=== PATIENT | male | born 1970 | race Caucasian/White ===

== ENCOUNTER 2022-03-17 13:50 | Observation (INO) ==
[2022-03-17] MEDS ORDERED: NS 1,000 ML IV 1,000 ML IV SCH (14:00)
[2022-03-17] MEDS ORDERED: NS 1,000 ML IV 1,000 ML ONE (14:12)
[2022-03-17 14:21] LABS: BASOPHILS # (AUTO) 0.3 X10^3/uL (0.0-0.1); BASOPHILS % (AUTO) 3.2 % (0.2-1.0); EOSINOPHILS # (AUTO) 0.2 x10^3/uL (0.0-0.2); EOSINOPHILS % (AUTO) 2.6 % (0.9-2.9); HEMATOCRIT 44.8 % (42.0-54.0); HEMOGLOBIN 15.5 g/dL (13.5-18.0); LYMPHOCYTES # (AUTO) 1.5 X10^3/uL (1.3-2.9); LYMPHOCYTES % (AUTO) 17.8 % (21.0-51.0); MEAN CORPUSCULAR HEMOGLOBIN 30.2 pg (27.0-34.0); MEAN CORPUSCULAR HGB CONC 34.6 g/dL (33.0-35.0); MEAN CORPUSCULAR VOLUME 87.3 fL (80.0-100.0); MEAN PLATELET VOLUME 8.9 fL (7.4-11.0); MONOCYTES # (AUTO) 0.4 x10^3/uL (0.3-0.8); MONOCYTES % (AUTO) 4.7 % (0.0-13.0); NEUTROPHILS # (AUTO) 6.2 x10^3/uL (2.2-4.8); NEUTROPHILS % (AUTO) 71.7 % (42.0-75.0); RED BLOOD COUNT 5.13 X10^6/uL (4.7-6.0); RED CELL DISTRIBUTION WIDTH 13.4 % (11.6-16.5); WHITE BLOOD COUNT 8.7 X10^3/uL (3.6-10.0)
--- NOTE | 2022-03-17 14:22 | CT ---
PROCEDURE: CT Head without Contrast .HISTORY: LEFT SIDED WEAKNESS .TECHNIQUE: Axial images were performed through the head without the administration of IV contrast with multiplanar reformations . Dose reduction techniques including Automated Exposure Control (AEC) and adjustment of mA and kV were utilized .COMPARISON: None .TECHNICAL QUALITY: Satisfactory .FINDINGS:Brain shows no mass, hemorrhage, or acute stroke.Ventricles are normal size for patient's age.No acute skull or scalp abnormality.Visualized sinuses and mastoids are clear.IMPRESSION:No abnormality identified.Electronically signed by: Cordell Porter (Mar 17, 2022 14:21:22)
[2022-03-17] MEDS ORDERED: NS 100 ML IV 100 ML ONE (14:30)
[2022-03-17] MEDS ORDERED: BENADRYL INJ 50 MG VIAL IV ONE ×2 (14:36→14:39)
[2022-03-17] MEDS ORDERED: SOLU-Medrol 125 MG VIAL IVP ONE (14:37)
[2022-03-17] MEDS ORDERED: BENADRYL INJ 50 MG VIAL ONE (14:38)
[2022-03-17] MEDS ORDERED: SOLU-Medrol 125 MG VIAL ONE (14:38)
[2022-03-17 14:42] LABS: ALANINE AMINOTRANSFERASE 27 Units/L (12-78); ALBUMIN 3.9 g/dL (3.4-5.0); ALKALINE PHOSPHATASE 78 Units/L (46-116); ASPARTATE AMINO TRANSFERASE 17 Units/L (15-37); BLOOD UREA NITROGEN 12 mg/dL (7-18); CALCIUM 9.2 mg/dL (8.5-10.1); CARBON DIOXIDE 26.9 mmol/L (21-32); CHLORIDE 103 mmol/L (98-107); CHOL/HDL RATIO 3.2 (0.0-5.0); CHOLESTEROL 161 mg/dL (0-200); CKMB % 1.1 % (<4); COR NA(FOR HYPERGLY) 142 mmol/L (136-145); CREATINE KINASE 173 Units/L (39-308); CREATINE KINASE MB 1.9 ng/mL (0-4.0); CREATININE 1.07 mg/dL (0.70-1.30); HDL CHOLESTEROL 50 mg/dL (40-60); SODIUM 140 mmol/L (136-145); TOTAL PROTEIN 6.9 g/dL (6.4-8.2); TRIGLYCERIDES 87 mg/dL (0-150); eGFR NON BLACK RACES > 60 (>60)
--- NOTE | 2022-03-17 15:32 | RAD ---
HISTORYStrokeSTUDYAP [id number]/28/2018 report onlyFINDINGSNormal heart size with clear lungs and pleural spaces.IMPRESSIONNo evidence for active or significant chronic chest disease.Electronically signed by: GOGO PETE (Mar 17, 2022 15:30:48)
--- NOTE | 2022-03-17 15:33 | CT ---
HISTORYSTROKESTUDYCAROTID CTACOMPARISONCT brain without contrast from March 17, 2022TECHNIQUEAxial CT angiography of the neck with intravenous contrast; 100 mL Omnipaque 350. Coronal, sagittal and MIP and/or 3D reconstructed images were created for further characterization by the technologist.Radiation dose: 1890.00 mGy-cm total DLPFINDINGSRight common carotid artery: No clinically significant stenosis, occlusion or dissection.Right internal carotid artery: No clinically significant stenosis of the extracranial segment. No dissection or occlusion.Right external carotid artery: No occlusion or clinically significant stenosis of the origin.Right vertebral artery: No clinically significant stenosis, occlusion or dissection.Left common carotid artery: No clinically significant stenosis, occlusion or dissection..Left internal carotid artery: No clinically significant stenosis of the extracranial segment. No dissection or occlusion.Left external carotid artery: No occlusion or clinically significant stenosis of the origin.Left vertebral artery: No clinically significant stenosis. No dissection or occlusion.Bones/joints: No acute fracture.Soft tissues: Normal. No significant soft tissue swelling.Lungs: Imaged portion of the lungs are clear of focal airspace disease.IMPRESSIONNo acute abnormality, specifically, no clinically significant stenosis, occlusion or dissection involving the arterial structures of the neck.REFERENCES: NASCET CRITERIA: The degree of internal carotid artery stenosis is based on NASCET criteria. Normal is no stenosis. Mild is less than 50% stenosis. Moderate is 50-69% stenosis. Severe is 70% to 99% stenosis. Total occlusion is no detectable patent lumen.Electronically signed by: Beni Jin (Mar 17, 2022 15:32:03)
--- NOTE | 2022-03-17 15:35 | CT ---
HISTORYSTROKESTUDYBRAIN CTACOMPARISONCT head without contrast from March 17, 2022TECHNIQUEAxial CT angiography of the head with intravenous contrast; 100 mL Omnipaque 350. Coronal, sagittal and MIP and/or 3D reconstructed images were created for further characterization by the technologist.Radiation dose: 1890.00 mGy-cm total DLPFINDINGSAnterior Circulation:Right internal carotid artery: No clinically significant stenosis, occlusion or aneurysm.Right middle cerebral artery: No clinically significant stenosis, occlusion or aneurysm.Right anterior cerebral artery: No clinically significant stenosis, occlusion or aneurysm.Left internal carotid artery: No clinically significant stenosis, occlusion or aneurysm.Left middle cerebral artery: No clinically significant stenosis, occlusion or aneurysm.Left anterior cerebral artery: No clinically significant stenosis, occlusion or aneurysm..Posterior Circulation:Right vertebral artery: No clinically significant stenosis, occlusion or aneurysm.Left vertebral artery: No clinically significant stenosis, occlusion or aneurysm.Basilar artery: No clinically significant stenosis, occlusion or aneurysm.Right posterior cerebral artery: No clinically significant stenosis, occlusion or aneurysm.Left posterior cerebral artery: No clinically significant stenosis, occlusion or aneurysm.Venous: No filling defects in the dural venous sinuses.Brain: No abnormal areas of acute attenuation in the brain parenchyma.Bones/joints: No acute osseous abnormality.Soft tissues: Unremarkable.IMPRESSION1. No acute intracranial abnormality identified, specifically, no clinically significant stenosis, occlusion or aneurysm identified involving the intracranial arterial structures.2. No evidence of dural venous thrombosis.Electronically signed by: Beni Jin (Mar 17, 2022 15:34:19)
--- NOTE | 2022-03-17 15:45 | TELESTROKE ---
Tele[facility]Specialist Consult Date of Consult Date of Exam: 03/17/22 Time of Arrival to the ED: 13:52 Allergies Allergies Allergy/AdvReac Type Severity Reaction Status Date / Time No Known Drug Allergies Allergy Verified 03/17/22 14:11 Vital Signs Vital Signs: Temp Pulse Resp BP BP Pulse Ox O2 Del Method 09/05/18 00:44 122/92 03/17/22 15:15 72 20 03/17/22 15:00 65 16 98 03/17/22 15:00 152/80 03/17/22 14:58 67 19 99 03/17/22 14:58 156/81 03/17/22 14:57 70 20 03/17/22 14:30 62 21 96 03/17/22 14:30 144/85 03/17/22 14:30 62 21 144/85 96 Room Air 03/17/22 14:15 69 19 98 03/17/22 14:04 64 14 97 03/17/22 14:08 98.7 F 70 20 160/87 99 Room Air History of Present Illness History of Present Illness: [facility] TeleNeurology Consult Services Date of Service: 03/17/2022 14:11:14 Diagnosis: I63.9 - Cerebrovascular accident (CVA), unspecified mechanism (HCC) Impression: 51-year-old male with history of A. fib on Eliquis who presents with acute left-sided weakness and numbness. Nih stroke scale 9. Not a tPA candidate as on anticoagulation. CT head without shows no acute process. CTA h/n shows no LVO. Recommend MRI brain without, TTE with bubble, A1c, lipid panel. Reasonable to hold Eliquis now and use aspirin 325 mg until size of CVA can be defined. Neuro to follow. SBP goal < 220. Metrics: Last Known Well: 03/17/2022 13:30:00 [facility] Notification Time: 03/17/2022 14:11:13 Arrival Time: 03/17/2022 13:52:00 Stamp Time: 03/17/2022 14:11:14 Initial Response Time: 03/17/2022 14:14:07 Symptoms: headache. NIHSS Start Assessment Time: 03/17/2022 14:15:19 Patient is not a candidate for Thrombolytic. Thrombolytic Medical Decision: 03/17/2022 14:16:52 Patient was not deemed candidate for Thrombolytic because of following reasons: Use of NOAs within [address] head showed no acute hemorrhage or acute core infarct. ED Physician notified of diagnostic impression and management plan on 03/17/2022 15:42:22 Advanced Imaging: CTA Head and Neck Completed. LVO:No Patient doesn't meet criteria for emergent SILVIANO consideration Our recommendations are outlined below. Recommendations: Stroke/Telemetry Floor Neuro Checks Bedside Swallow Eval DVT Prophylaxis IV Fluids, Normal Saline Head of Bed 30 Degrees Euglycemia and Avoid Hyperthermia (PRN Acetaminophen) Routine Consultation with Inhouse Neurology for Follow up Care Sign Out: Discussed with Emergency Department Provider History of Present Illness: Patient is a 51 year old Male. Patient was brought by EMS for symptoms of headache. History obtained by patient and at bedside. Patient was last seen well at 1:30 PM. While in the car, patient developed acute onset left-sided weaknesses. He also describes mild headache and neck pain. No prior history of stroke. He has a history of atrial fibrillation on Eliquis that he is compliant with. Past Medical History: Atrial Fibrillation Anticoagulant use: Yes Eliquis Antiplatelet use: No Allergies: Reviewed Examination: BP(160/87), Pulse(64), 1A: Level of Consciousness - Arouses to minor stimulation + 1 1B: Ask Month and Age - Both Questions Right + 0 1C: Blink Eyes & Squeeze Hands - Performs Both Tasks + 0 2: Test Horizontal Extraocular Movements - Normal + 0 3: Test Visual Turner - No Visual Loss + 0 4: Test Facial Palsy (Use Grimace if Obtunded) - Minor paralysis (flat nasolabial fold, smile asymmetry) + 1 5A: Test Left Arm Motor Drift - Some Effort Against Stanley + 2 5B: Test Right Arm Motor Drift - No Drift for 10 Seconds + 0 6A: Test Left Leg Motor Drift - Some Effort Against Stanley + 2 6B: Test Right Leg Motor Drift - No Drift for 5 Seconds + 0 7: Test Limb Ataxia (FNF/Heel-Vines) - No Ataxia + 0 8: Test Sensation - Mild-Moderate Loss: Less Sharp/More Dull + 1 9: Test Language/Aphasia - Normal; No aphasia + 0 10: Test Dysarthria - Severe Dysarthria: Unintelligble Slurring or Out of Proportion to Aphasia + 2 11: Test Extinction/Inattention - No abnormality + 0 NIHSS Score: 9 Pre-Morbid Modified Vera Scale: 0 Points = No symptoms at all Patient/Family was informed the Neurology Consult would occur via TeleHealth consult by way of interactive audio and video telecommunications and consented to receiving care in this manner. Patient is being evaluated for possible acute neurologic impairment and high probability of imminent or life-threatening deterioration. I spent total of 30 minutes providing care to this patient, including time for face to face visit via telemedicine, review of medical records, imaging studies and discussion of findings with providers, the patient and/or family. Dr Alexis Quiñones [facility] Case [id number] Medical Decision Making Result Diagrams: 03/17/22 14:05 03/17/22 14:05 Labs: Laboratory Results - last 24 hr 03/17/22 03/17/22 03/17/22 14:04 14:05 14:05 WBC 8.7 RBC 5.13 Hgb 15.5 Hct 44.8 MCV 87.3 MCH 30.2 MCHC 34.6 RDW 13.4 Plt Count 197 MPV 8.9 Neut % (Auto) 71.7 Lymph % (Auto) 17.8 L [place] % (Auto) 4.7 Eos % (Auto) 2.6 Baso % (Auto) 3.2 H Neut # (Auto) 6.2 H Lymph # (Auto) 1.5 [place] # (Auto) 0.4 Eos # (Auto) 0.2 Baso # (Auto) 0.3 H Absolute Nucleated RBC 0.1 PT 14.3 INR Target Range - INR 1.15 APTT 32.6 PTT Comment - Fibrinogen 368 Sodium Corrected Sodium Potassium Chloride Carbon Dioxide BUN Creatinine Est GFR (MDRD) Af Amer Est GFR (MDRD) Non-Af Glucose POC Glucose (mg/dL) 159 H Calcium Corrected Calcium Total Bilirubin AST ALT Alkaline Phosphatase Creatine Kinase CK-MB (CK-2) CK/CKMB % Calc Troponin I High Sens Total Protein Albumin Globulin Albumin/Globulin Ratio Triglycerides Cholesterol LDL Cholesterol, Calc HDL Cholesterol Cholesterol/HDL Ratio Blood Type Antibody Screen 03/17/22 03/17/22 14:05 14:22 WBC RBC Hgb Hct MCV MCH MCHC RDW Plt Count MPV Neut % (Auto) Lymph % (Auto) [place] % (Auto) Eos % (Auto) Baso % (Auto) Neut # (Auto) Lymph # (Auto) [place] # (Auto) Eos # (Auto) Baso # (Auto) Absolute Nucleated RBC PT INR Target Range INR APTT PTT Comment Fibrinogen Sodium 140 Corrected Sodium 142 Potassium 3.3 L Chloride 103 Carbon Dioxide 26.9 BUN 12 Creatinine 1.07 Est GFR (MDRD) Af Amer > 60 Est GFR (MDRD) Non-Af > 60 Glucose 174 H POC Glucose (mg/dL) Calcium 9.2 Corrected Calcium TNP Total Bilirubin 0.70 AST 17 ALT 27 Alkaline Phosphatase 78 Creatine Kinase 173 CK-MB (CK-2) 1.9 CK/CKMB % Calc 1.1 Troponin I High Sens 7.1 Total Protein 6.9 Albumin 3.9 Globulin 3.0 Albumin/Globulin Ratio 1.3 Triglycerides 87 Cholesterol 161 LDL Cholesterol, Calc 94 HDL Cholesterol 50 Cholesterol/HDL Ratio 3.2 Blood Type O POSITIVE Antibody Screen Negative
[2022-03-17] MEDS ORDERED: ASPIRIN ONE (15:46)
--- NOTE | 2022-03-17 15:48 | DR.WEAKNES ---
HPI Time Seen Time Seen by Provider: 03/17/22 14:24 Primary Care Physician Primary Care Physician: RYAN ZIMMERMAN DR, KAREN TABLE OPERATOR HPI Comment HPI Comment: A 51 y/o male presenting via POV due to sudden onset of Lt. sided weakness while driving after scientologist this afternoon. He has a PMHx. of A. fib. Associated c/o includes a headache - Lt. sided. Complaints Chief Complaint:: PT'S STATES THAT HER AND HER WENT TO [place] AND SHE WAS GOING TO THE [employer]OCERY STORE AND HE CALLED HER AND TOLD HER HE WAS HAVING A STROKE AND HE PULLED OVER AROUND 130 PM PT'S TRANSPORTED HIM TO THE ER, PT NOTED TO BE HAVING LEFT SIDE WEAKNESS , FACIAL DROOP TO LEFT SIDE ,BR Reviewed Nurses Notes Reviewed: Yes Source History Provided: Patient and Significant Other Mode of Arrival Mode of Arrival: Ambulatory Timing Onset of Chief Complaint: 03/17/22 Symptom Onset: Known Onset of Symptoms Start Date: 03/18/22 Onset of Symptoms Start Time: 13:30 Context Stroke Symptoms: Weakness of limb Location Weakness Location: Left, Sided, Arm and Leg Other History Other History: A.fib PMH PMH Past Medical History: Yes Past Medical History Comment: AFIB , WITH ABLATION 2008, AND 2012 , AND Past Surgical History: Yes Surgical History: Appendectomy, Ortho Surgery and Tonsillectomy Past Surgical History Comment: KNEE, TENNIS ELBOW Family History History of Family Medical Conditions: No Social History Does patient currently use any type of tobacco product: No Have you used tobacco products in the last 12 months: No Alcohol Use: None Do you use any recreational Drugs:: No Lives With: Family Lives Where: Home Travel Risk Coronavirus risk:travel/contact w/high risk person: No Has patient experienced Coronavirus symptoms: No Infectious screening In the last 2 months have you had wt loss of >10#?: NO Have you had fever, night sweats or hemotysis?: No Have you traveled outside the country in the last 6 months?: No Isolation: Standard ROS Review of Systems Constitutional: No Symptoms Reported Eyes: Blurred Vision ENTM: No Symptoms Reported Respiratoy: No Symptoms Reported Cardiovascular: No Symptoms Reported Gastrointestinal/Abdominal: No Symptoms Reported Genitourinary: No Symptoms Reported Neurological: Headache Musculoskeletal: Left (upper and lower extremity weakness) Integumentary: No Symptoms Reported Hematologic/Lymphatic: No Symptoms Reported Endocrine: No Symptoms Reported Psychiatric: No Symptoms Reported PE Vital Signs Vitals: Temperature 98.7 F Pulse Rate 66 Respiratory Rate 19 Blood Pressure [Left Arm] 122/92 Blood Pressure 162/84 O2 Sat by Pulse Oximetry 97 General Limitations: Physical Limitation General Appearance: Alert and In No Apparent Distress Eyes Eye exam: Normal Appearance and EOMI Eyelids: Normal Inspection: Bilateral Pupils: Regular, Round: Bilateral Sclera/Conjunctival: Normal Inspection: Bilateral ENT ENT Exam: Normal External Ear Exam and Other (flatening of Lt. nasal fold) Throat Exam: Normal Inspection and Other (Uvula is midline) Neck Neck Exam: Normal Inspection, Full ROM and Trachea Midline Chest Chest Inspection: Normal Inspection and Symmetric Chest Wall Rise Respiratory Respiratory Exam: Normal Lung Sounds Bilat Cardiovascular Cardiovascular Exam: Regular Rate, Normal Rhythm, Normal Heart Sounds, +S1 and +S2 Abdominal Exam Abdominal Exam: Normal Inspection, Normal Bowel Sounds and Soft Extremities Extremities Exam: Normal Inspection and Other (motor strength to LUE and LLE is 1/5. Normal motor strength on the right is 5/5 with FROM. ) Back Back Exam: Normal Inspection and Full ROM Neurologic Neurological Exam: Alert and Oriented X3 Psychiatric Psychiatric Exam: Normal Affect and Normal Mood Skin Skin Exam: Dry and Intact MDM Differential Diagnosis Differential Diagnosis: Mccollum's Palsey, CVA, SAH and TIA COURSE Treatment Treatment: He had CT Scan of the Brain as soon as rolled in the devonte. He had tele neuro-radiology evaluation followed by a Brain and Carotid angiography. He was admitted after discussing with chemical operations specialist provider with palns to monitor serially ordered blood tests and an MRI of the Brain in the morning. Reevaluation 1st: Unchanged Education/Counseling Education/Counseling: Patient, Family, Education and Counseling Educated On: Treatment, Diagnosis, Prognosis and Needs for Follow Up ROR Labs Reviewed Laboratory Results Reviewed?: Yes Result Diagrams: 03/17/22 14:05 03/17/22 14:05 Laboratory: WBC 8.7 X10^3/uL (3.6-10.0) 03/17/22 14:05 RBC 5.13 X10^6/uL (4.7-6.0) 03/17/22 14:05 Hgb 15.5 g/dL (13.5-18.0) 03/17/22 14:05 Hct 44.8 % (42.0-54.0) 03/17/22 14:05 MCV 87.3 fL (80.0-100.0) 03/17/22 14:05 MCH 30.2 pg (27.0-34.0) 03/17/22 14:05 MCHC 34.6 g/dL (33.0-35.0) 03/17/22 14:05 RDW 13.4 % (11.6-16.5) 03/17/22 14:05 Plt Count 197 X10^3/uL (150.0-450.0) 03/17/22 14:05 MPV 8.9 fL (7.4-11.0) 03/17/22 14:05 Neut % (Auto) 71.7 % (42.0-75.0) 03/17/22 14:05 Lymph % (Auto) 17.8 % (21.0-51.0) L 03/17/22 14:05 [place] % (Auto) 4.7 % (0.0-13.0) 03/17/22 14:05 Eos % (Auto) 2.6 % (0.9-2.9) 03/17/22 14:05 Baso % (Auto) 3.2 % (0.2-1.0) H 03/17/22 14:05 Neut # (Auto) 6.2 x10^3/uL (2.2-4.8) H 03/17/22 14:05 Lymph # (Auto) 1.5 X10^3/uL (1.3-2.9) 03/17/22 14:05 [place] # (Auto) 0.4 x10^3/uL (0.3-0.8) 03/17/22 14:05 Eos # (Auto) 0.2 x10^3/uL (0.0-0.2) 03/17/22 14:05 Baso # (Auto) 0.3 X10^3/uL (0.0-0.1) H 03/17/22 14:05 Absolute Nucleated RBC 0.1 /100WBC 03/17/22 14:05 PT 14.3 SECONDS (11.8-14.3) 03/17/22 14:05 INR Target Range - 03/17/22 14:05 INR 1.15 (0.8-1.3) 03/17/22 14:05 APTT 32.6 SECONDS (22.9-36.5) 03/17/22 14:05 PTT Comment - 03/17/22 14:05 Fibrinogen 368 mg/dL (239-489) 03/17/22 14:05 Sodium 140 mmol/L (136-145) 03/17/22 14:05 Corrected Sodium 142 mmol/L (136-145) 03/17/22 14:05 Potassium 3.3 mmol/L (3.5-5.1) L 03/17/22 14:05 Chloride 103 mmol/L (98-107) 03/17/22 14:05 Carbon Dioxide 26.9 mmol/L (21-32) 03/17/22 14:05 BUN 12 mg/dL (7-18) 03/17/22 14:05 Creatinine 1.07 mg/dL (0.70-1.30) 03/17/22 14:05 Est GFR (MDRD) Af Amer > 60 (>60) 03/17/22 14:05 Est GFR (MDRD) Non-Af > 60 (>60) 03/17/22 14:05 Glucose 174 mg/dL (65-99) H 03/17/22 14:05 POC Glucose (mg/dL) 159 mg/dL (65-99) H 03/17/22 14:04 Calcium 9.2 mg/dL (8.5-10.1) 03/17/22 14:05 Corrected Calcium TNP 03/17/22 14:05 Total Bilirubin 0.70 mg/dL (0.2-1.0) 03/17/22 14:05 AST 17 Units/L (15-37) 03/17/22 14:05 ALT 27 Units/L (12-78) 03/17/22 14:05 Alkaline Phosphatase 78 Units/L (46-116) 03/17/22 14:05 Creatine Kinase 173 Units/L (39-308) 03/17/22 14:05 CK-MB (CK-2) 1.9 ng/mL (0-4.0) 03/17/22 14:05 CK/CKMB % Calc 1.1 % (<4) 03/17/22 14:05 Troponin I High Sens 7.1 ng/L (4.0-60.0) 03/17/22 14:05 Total Protein 6.9 g/dL (6.4-8.2) 03/17/22 14:05 Albumin 3.9 g/dL (3.4-5.0) 03/17/22 14:05 Globulin 3.0 g/dL (2.5-4.5) 03/17/22 14:05 Albumin/Globulin Ratio 1.3 Ratio (1.1-2.1) 03/17/22 14:05 Triglycerides 87 mg/dL (0-150) 03/17/22 14:05 Cholesterol 161 mg/dL (0-200) 03/17/22 14:05 LDL Cholesterol, Calc 94 mg/dL (0-100) 03/17/22 14:05 HDL Cholesterol 50 mg/dL (40-60) 03/17/22 14:05 Cholesterol/HDL Ratio 3.2 (0.0-5.0) 03/17/22 14:05 Blood Type O POSITIVE 03/17/22 14:22 Antibody Screen Negative 03/17/22 14:22 EKG Rate: 67 [place]: Normal Rhythm: NSR Block: None Hypertrophy: LAE ST: Normal Opioid Opioid Risk Tool Age (Umer box if 16-45): No Total: 0 Total Score Risk Category: Low Risk Copyright: Escobar MORFIN predicting aberrant behaviors Discharge Plan Diagnosis Discharge Problem: Acute CVA (cerebrovascular accident), Atrial fibrillation Discharge Plan Patient Disposition: ADMITTED INPATIENT Condition: Stable
[2022-03-17] MEDS ORDERED: ASPIRIN PO SCH (16:00)
[2022-03-17] MEDS ORDERED: OFIRMEV IV 1000 MG VIAL 1,000 MG/100 ML VIAL IV PRN (16:59)
[2022-03-17] MEDS ORDERED: OFIRMEV IV 1000 MG VIAL 1,000 MG/100 ML VIAL IV ONE (17:03)
[2022-03-17] MEDS ORDERED: MORPHINE SULFATE INJ 2 MG INJ IVP ONE (17:21)
[2022-03-17 17:26] VITALS: BMI 25.4
[2022-03-17] MEDS ORDERED: MORPHINE SULFATE INJ 2 MG INJ ONE (17:55)
[2022-03-17 17:58] LABS: CKMB % 1.1 % (<4); CREATINE KINASE MB 1.6 ng/mL (0-4.0)
[2022-03-17] MEDS: NS 1,000 ML IV 1,000 ML IV SCH (18:47)
[2022-03-17 20:23] LABS: BILIRUBIN,URINE NEGATIVE (NEGATIVE); BLOOD/HEMOGLOBIN,URINE 1+ (NEGATIVE); GLUCOSE, URINE NEGATIVE (NEGATIVE); KETONES,URINE NEGATIVE (NEGATIVE); LEUKOCYTE ESTERASE ,URINE NEGATIVE (NEGATIVE); NITRITES,URINE NEGATIVE (NEGATIVE); PH,URINE 6.5 (5.0 - 8.0); PROTEIN,URINE NEGATIVE (NEGATIVE); UROBILINOGEN,URINE NORMAL (NORMAL)
[2022-03-17 20:25] LABS: APPEARANCE,URINE CLEAR (CLEAR); COLOR,URINE PALE YELLOW (YELLOW)
[2022-03-17 20:32] LABS: BACTERIA,URINE NEGATIVE /HPF (NEGATIVE); RBC,URINE 0-2 /HPF (0-3); SQUAMOUS EPITHELIAL CELL,UR NEGATIVE /HPF (NEGATIVE)
[2022-03-18] MEDS: NS 1,000 ML IV 1,000 ML IV SCH ×4 (00:24→23:15)
[2022-03-18 05:40] LABS: BASOPHILS % (AUTO) 0.1 % (0.2-1.0); HEMATOCRIT 44.7 % (42.0-54.0); LYMPHOCYTES # (AUTO) 0.7 X10^3/uL (1.3-2.9); LYMPHOCYTES % (AUTO) 4.7 % (21.0-51.0); MEAN CORPUSCULAR HEMOGLOBIN 29.5 pg (27.0-34.0); MEAN CORPUSCULAR HGB CONC 33.7 g/dL (33.0-35.0); MEAN CORPUSCULAR VOLUME 87.5 fL (80.0-100.0); MEAN PLATELET VOLUME 9.1 fL (7.4-11.0); MONOCYTES # (AUTO) 0.3 x10^3/uL (0.3-0.8); MONOCYTES % (AUTO) 1.8 % (0.0-13.0); NEUTROPHILS # (AUTO) 12.8 x10^3/uL (2.2-4.8); NEUTROPHILS % (AUTO) 93.4 % (42.0-75.0); RED BLOOD COUNT 5.11 X10^6/uL (4.7-6.0); RED CELL DISTRIBUTION WIDTH 13.6 % (11.6-16.5); WHITE BLOOD COUNT 13.8 X10^3/uL (3.6-10.0)
[2022-03-18 05:57] LABS: ALANINE AMINOTRANSFERASE 23 Units/L (12-78); ALBUMIN 3.2 g/dL (3.4-5.0); ALKALINE PHOSPHATASE 65 Units/L (46-116); ASPARTATE AMINO TRANSFERASE 13 Units/L (15-37); BLOOD UREA NITROGEN 13 mg/dL (7-18); CALCIUM 8.2 mg/dL (8.5-10.1); CARBON DIOXIDE 26.2 mmol/L (21-32); CHLORIDE 107 mmol/L (98-107); COR CA(FOR HYPOALB) 8.8 mg/dL (8.5-10.1); COR NA(FOR HYPERGLY) 142 mmol/L (136-145); CREATININE 0.94 mg/dL (0.70-1.30); SODIUM 141 mmol/L (136-145); eGFR NON BLACK RACES > 60 (>60)
[2022-03-18 06:19] LABS: BAND NEUTROPHILS % 1 % (0-10); PLATELET MORPHOLOGY COMMENT NORMAL (NORMAL)
--- NOTE | 2022-03-18 11:02 | DR.H&P ---
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 He noticed it after coming back from [place] yesterday afternoon. Patient notified his and was brought to the ER. reports patient's left eye was partially open and he had a facial droop. His LUE and LLL weakness was worse than baseline and he was not able to make a fist or hold anything. In the ER, CT-head did not show any acute process or bleed. Tele neuro consult was done and due to patient being on anti-coagulation, he was not a candidate for tPA. He also had Neck and Head CTA which did not show any occlusion or stenosis. Patient was admitted for further evaluation. He is doing better this morning. His speech is at baseline and facial droop resolved. His LUE and LLE weakness has improved. Patient is currently NPO, vitals are stable. He reports going to [place] ER in December for similar symptoms and was told he has a blockage in his neck. He was not admitted and was advised to f/u with cardiology. He has had ablation for atrial fibrillat ion. He sees Dr Phillips, last visit in Sep. He reports taking Eliquis daily, has not missed any doses recently. Labs/imaging reviewed CTA head and brain: No acute intracranial abnormality identified, specifically, no clinically significant stenosis, occlusion or aneurysm identified involving the intracranial arterial structures. No evidence of dural venous thrombosis. WBC 13.8 Glucose 129 Lipid panel: normal Plan: Order MRI brain without contrast and echo. Speech therapy pending. Patient is able to drink water this morning. PT/OT as tolerated. Continue asa 325 mg daily for now as per neuro recommendations until MRI results. SCDs for DVT ppx. Resume PO medications once cleared by speech. Change neuro check to every 6 hrs. Will obtain records from cardiology. Continue hydration with NS. Monitor AM labs/imaging. Past Surgical History Surgical History: Appendectomy, Ortho Surgery and Tonsillectomy Family History Family Medical History: Hypertension Social History Does patient currently use any type of tobacco product: No Have you used tobacco products in the last 12 months: No Type of Tobacco Use: None Alcohol Use: None Drug Use: None Medications Home Medications: No Known Drug Allergies Allergy (Verified 03/17/22 14:11) CONTINUE taking the following medications apixaban 5 mg tablet (Eliquis) 1 tab BID 03/17/22 [History] losartan 50 mg tablet 1 tab PO QDAY 03/17/22 [History] losartan 50 mg tablet 1 tab PO QDAY 03/17/22 [History] Labs Result Diagrams: 03/18/22 05:10 03/18/22 05:10 Labs: Laboratory WBC 13.8 X10^3/uL (3.6-10.0) H 03/18/22 05:10 RBC 5.11 X10^6/uL (4.7-6.0) 03/18/22 05:10 Hgb 15.0 g/dL (13.5-18.0) 03/18/22 05:10 Hct 44.7 % (42.0-54.0) 03/18/22 05:10 MCV 87.5 fL (80.0-100.0) 03/18/22 05:10 MCH 29.5 pg (27.0-34.0) 03/18/22 05:10 MCHC 33.7 g/dL (33.0-35.0) 03/18/22 05:10 RDW 13.6 % (11.6-16.5) 03/18/22 05:10 Plt Count 201 X10^3/uL (150.0-450.0) 03/18/22 05:10 Plt Count Comment Adequate (ADEQUATE) 03/18/22 05:10 MPV 9.1 fL (7.4-11.0) 03/18/22 05:10 Neut % (Auto) 93.4 % (42.0-75.0) H 03/18/22 05:10 Lymph % (Auto) 4.7 % (21.0-51.0) L 03/18/22 05:10 Mitchell % (Auto) 1.8 % (0.0-13.0) 03/18/22 05:10 Eos % (Auto) 0.0 % (0.9-2.9) L 03/18/22 05:10 Baso % (Auto) 0.1 % (0.2-1.0) L 03/18/22 05:10 Neut # (Auto) 12.8 x10^3/uL (2.2-4.8) H 03/18/22 05:10 Lymph # (Auto) 0.7 X10^3/uL (1.3-2.9) L 03/18/22 05:10 Mitchell # (Auto) 0.3 x10^3/uL (0.3-0.8) 03/18/22 05:10 Eos # (Auto) 0.0 x10^3/uL (0.0-0.2) 03/18/22 05:10 Baso # (Auto) 0.0 X10^3/uL (0.0-0.1) 03/18/22 05:10 Absolute Nucleated RBC 0.0 /100WBC 03/18/22 05:10 Total Counted 100 03/18/22 05:10 Neutrophils % (Manual) 90 % (39-76) H 03/18/22 05:10 Band Neutrophils % 1 % (0-10) 03/18/22 05:10 Lymphocytes % (Manual) 6 % (13-43) L 03/18/22 05:10 Monocytes % (Manual) 3 % (4-9) L 03/18/22 05:10 Plt Morphology Comment Normal (NORMAL) 03/18/22 05:10 RBC Morphology Normal (NORMAL) 03/18/22 05:10 PT 14.3 SECONDS (11.8-14.3) 03/17/22 14:05 INR Target Range - 03/17/22 14:05 INR 1.15 (0.8-1.3) 03/17/22 14:05 APTT 32.6 SECONDS (22.9-36.5) 03/17/22 14:05 PTT Comment - 03/17/22 14:05 Fibrinogen 368 mg/dL (239-489) 03/17/22 14:05 Sodium 141 mmol/L (136-145) 03/18/22 05:10 Corrected Sodium 142 mmol/L (136-145) 03/18/22 05:10 Potassium 4.3 mmol/L (3.5-5.1) 03/18/22 05:10 Chloride 107 mmol/L (98-107) 03/18/22 05:10 Carbon Dioxide 26.2 mmol/L (21-32) 03/18/22 05:10 BUN 13 mg/dL (7-18) 03/18/22 05:10 Creatinine 0.94 mg/dL (0.70-1.30) 03/18/22 05:10 Est GFR (MDRD) Af Amer > 60 (>60) 03/18/22 05:10 Est GFR (MDRD) Non-Af > 60 (>60) 03/18/22 05:10 Glucose 129 mg/dL (65-99) H 03/18/22 05:10 POC Glucose (mg/dL) 123 mg/dL (65-99) H 03/18/22 05:34 Hemoglobin A1c 5.6 % 03/18/22 05:10 Calcium 8.2 mg/dL (8.5-10.1) L 03/18/22 05:10 Corrected Calcium 8.8 mg/dL (8.5-10.1) 03/18/22 05:10 Total Bilirubin 0.40 mg/dL (0.2-1.0) 03/18/22 05:10 AST 13 Units/L (15-37) L 03/18/22 05:10 ALT 23 Units/L (12-78) 03/18/22 05:10 Alkaline Phosphatase 65 Units/L (46-116) 03/18/22 05:10 Creatine Kinase 145 Units/L (39-308) 03/17/22 17:29 CK-MB (CK-2) 1.6 ng/mL (0-4.0) 03/17/22 17:29 CK/CKMB % Calc 1.1 % (<4) 03/17/22 17:29 Troponin I High Sens 8.8 ng/L (4.0-60.0) 03/17/22 17:29 Total Protein 6.0 g/dL (6.4-8.2) L 03/18/22 05:10 Albumin 3.2 g/dL (3.4-5.0) L 03/18/22 05:10 Globulin 2.8 g/dL (2.5-4.5) 03/18/22 05:10 Albumin/Globulin Ratio 1.1 Ratio (1.1-2.1) 03/18/22 05:10 Triglycerides 87 mg/dL (0-150) 03/17/22 14:05 Cholesterol 161 mg/dL (0-200) 03/17/22 14:05 LDL Cholesterol, Calc 94 mg/dL (0-100) 03/17/22 14:05 HDL Cholesterol 50 mg/dL (40-60) 03/17/22 14:05 Cholesterol/HDL Ratio 3.2 (0.0-5.0) 03/17/22 14:05 Specimen Type Clean catch urine 03/17/22 19:50 Urine Color Pale yellow (YELLOW) 03/17/22 19:50 Urine Appearance Clear (CLEAR) 03/17/22 19:50 Urine pH 6.5 (5.0 - 8.0) 03/17/22 19:50 Ur Specific [place] 1.010 (1.000-1.030) 03/17/22 19:50 Urine Protein Negative (NEGATIVE) 03/17/22 19:50 Urine Glucose (UA) Negative (NEGATIVE) 03/17/22 19:50 Urine Ketones Negative (NEGATIVE) 03/17/22 19:50 Urine Blood 1+ (NEGATIVE) 03/17/22 19:50 Urine Nitrite Negative (NEGATIVE) 03/17/22 19:50 Urine Bilirubin Negative (NEGATIVE) 03/17/22 19:50 Urine Urobilinogen Normal (NORMAL) 03/17/22 19:50 Ur Leukocyte Esterase Negative (NEGATIVE) 03/17/22 19:50 Urine RBC 0-2 /HPF (0-3) 03/17/22 19:50 Urine WBC None seen /HPF (0-5) 03/17/22 19:50 Ur Squamous Epith Cells Negative /HPF (NEGATIVE) 03/17/22 19:50 Urine Bacteria Negative /HPF (NEGATIVE) 03/17/22 19:50 Ur Culture Indicated? No/not indicated 03/17/22 19:50 SARS-CoV-2 (PCR) Negative (NEGATIVE) 03/17/22 16:26 Blood Type O POSITIVE 03/17/22 14:22 Antibody Screen Negative 03/17/22 14:22 Review of Systems Constitutional: No Symptoms Reported ENT: No Symptoms Reported Respiratory: No Symptoms Reported Cardiovascular: No Symptoms Reported Gastrointestinal: No Symptoms Reported Musculoskeletal: Other (left upper and lower ext weakness ) Neurological: Weakness, Change in Speech and Other (facial droop, slurred speech ) Physical Exam Vital Signs: Temperature 97.9 F Pulse Rate [Apical] 62 Pulse Rate 59 Respiratory Rate 0 Blood Pressure [Left Arm] 144/80 Blood Pressure 136/72 O2 Sat by Pulse Oximetry 98 Oriented: Normal Eyes: Normal Ear: Normal Nose: Normal Throat: Normal Respiratory: Clear Throughout Cardiovascular: Normal Auscultation: Bowel Sounds: Normal Palpation: Normal Tenderness: Normal Skin: Normal Musculoskeletal: Left (LUE and LLE 4/5 strength, normal sensation ), Arm and Leg Psychiatric: Normal Mood Description: Calm Affect: Normal Speech Pattern: Clear, Appropriate and Slurred (very slight slurring ) Assessment/Plan (1) Left hemiparesis: Status: Acute (2) History of CVA (cerebrovascular accident): Status: Acute (3) Atrial fibrillation: Status: Acute (4) HTN (hypertension): Status: Acute
--- NOTE | 2022-03-18 11:10 | MRI ---
HISTORYlt arm weakness, facial droopSTUDYBRAIN W/O CONCOMPARISONCT yesterdayTECHNIQUEMultiplanar multi-sequence MRI of the brain was obtained utilizing standard departmental protocol. Sagittal and axial T1 weighted images were obtained. Axial T2 and flair weighted images were performed as well. Axial diffusion weighted and ADC trace mapping was performed.FINDINGSThe midline structures appear unremarkable. The evaluation of the brain parenchyma demonstrates no abnormal signal characteristics to suggest intraparenchymal mass or hemorrhage. No extra-axial fluid collections are observed. The ventricular system appears symmetric and nondilated. The CP angle is normal in its appearance without brainstem mass or evidence for acoustic neuroma. The flow voids on both T1 and T2 weighted imaging appear unremarkable. Evaluation of the diffusion weighted imaging does not demonstrate abnormal signal characteristics to suggest acute ischemic change. The extracranial structures are unremarkable.IMPRESSIONUnremarkable MRI of the brain without contrast.Electronically signed by: RAD PAREDES (Mar 18, 2022 11:08:56)
[2022-03-18] MEDS: ASPIRIN PO SCH (11:50)
[2022-03-18] MEDS: COZAAR PO SCH (11:50)
[2022-03-18] MEDS ORDERED: COZAAR PO SCH (12:00)
[2022-03-18] MEDS: ELIQUIS PO SCH (20:42)
[2022-03-19 05:17] LABS: BASOPHILS % (AUTO) 0.4 % (0.2-1.0); EOSINOPHILS # (AUTO) 0.1 x10^3/uL (0.0-0.2); EOSINOPHILS % (AUTO) 0.9 % (0.9-2.9); HEMOGLOBIN 14.1 g/dL (13.5-18.0); LYMPHOCYTES # (AUTO) 2.2 X10^3/uL (1.3-2.9); LYMPHOCYTES % (AUTO) 22.2 % (21.0-51.0); MEAN CORPUSCULAR HEMOGLOBIN 29.9 pg (27.0-34.0); MEAN CORPUSCULAR HGB CONC 34.3 g/dL (33.0-35.0); MONOCYTES # (AUTO) 0.7 x10^3/uL (0.3-0.8); MONOCYTES % (AUTO) 6.7 % (0.0-13.0); NEUTROPHILS # (AUTO) 6.9 x10^3/uL (2.2-4.8); NEUTROPHILS % (AUTO) 69.8 % (42.0-75.0); RED BLOOD COUNT 4.71 X10^6/uL (4.7-6.0); RED CELL DISTRIBUTION WIDTH 13.7 % (11.6-16.5); WHITE BLOOD COUNT 9.9 X10^3/uL (3.6-10.0)
[2022-03-19 05:23] LABS: BLOOD UREA NITROGEN 13 mg/dL (7-18); CALCIUM 7.8 mg/dL (8.5-10.1); CARBON DIOXIDE 28.4 mmol/L (21-32); CHLORIDE 109 mmol/L (98-107); CREATININE 0.86 mg/dL (0.70-1.30); SODIUM 141 mmol/L (136-145); eGFR NON BLACK RACES > 60 (>60)
[2022-03-19] MEDS: NS 1,000 ML IV 1,000 ML IV SCH ×2 (05:51→11:06)
[2022-03-19] MEDS: ASPIRIN PO SCH (08:18)
[2022-03-19] MEDS: ELIQUIS PO SCH (08:18)
[2022-03-19] MEDS: COZAAR PO SCH (08:18)
[2022-03-19 14:20] VITALS: BP 115/79
--- NOTE | 2022-03-19 14:22 | W.DIS.FURT ---
Summary of Discharge Admission Diagnosis Patient Problems (Updated 03/18/22 @ 11:14 by Arianna John) Acute CVA (cerebrovascular accident) (Acute) I63.9 Atrial fibrillation (Acute) I48.91 Vital Signs: Vital Signs (72 hours) 03/17/22 14:08 03/17/22 14:04 03/17/22 14:15 Temperature 98.7 F Pulse Rate 70 64 69 Pulse Rate [Apical] Respiratory Rate 20 14 19 Blood Pressure 160/87 Blood Pressure [Left Arm] O2 Sat by Pulse Oximetry 99 97 98 Oxygen Delivery Method Room Air 03/17/22 14:30 03/17/22 14:30 03/17/22 14:30 Temperature Pulse Rate 62 62 Pulse Rate [Apical] Respiratory Rate 21 21 Blood Pressure 144/85 144/85 Blood Pressure [Left Arm] O2 Sat by Pulse Oximetry 96 96 Oxygen Delivery Method Room Air 03/17/22 14:57 03/17/22 14:58 03/17/22 14:58 Temperature Pulse Rate 70 67 Pulse Rate [Apical] Respiratory Rate 20 19 Blood Pressure 156/81 Blood Pressure [Left Arm] O2 Sat by Pulse Oximetry 99 Oxygen Delivery Method 03/17/22 15:00 03/17/22 15:00 03/17/22 15:15 Temperature Pulse Rate 65 72 Pulse Rate [Apical] Respiratory Rate 16 20 Blood Pressure 152/80 Blood Pressure [Left Arm] O2 Sat by Pulse Oximetry 98 Oxygen Delivery Method 03/17/22 17:00 03/17/22 17:00 03/17/22 16:50 Temperature Pulse Rate 62 Pulse Rate [Apical] 62 Respiratory Rate 12 12 Blood Pressure 144/80 Blood Pressure [Left Arm] 144/80 O2 Sat by Pulse Oximetry 98 98 Oxygen Delivery Method Room Air Room Air Room Air 03/17/22 17:22 03/17/22 18:00 03/17/22 15:30 Temperature Pulse Rate Pulse Rate [Apical] Respiratory Rate 16 Blood Pressure 129/75 Blood Pressure [Left Arm] O2 Sat by Pulse Oximetry Oxygen Delivery Method Room Air 03/17/22 15:30 03/17/22 15:45 03/17/22 16:00 Temperature Pulse Rate 61 58 L Pulse Rate [Apical] Respiratory Rate 17 17 Blood Pressure 162/84 Blood Pressure [Left Arm] O2 Sat by Pulse Oximetry 99 99 Oxygen Delivery Method 03/17/22 16:00 03/17/22 16:15 03/17/22 16:30 Temperature Pulse Rate 63 66 Pulse Rate [Apical] Respiratory Rate 18 19 Blood Pressure 136/75 Blood Pressure [Left Arm] O2 Sat by Pulse Oximetry 97 Oxygen Delivery Method 03/17/22 16:30 03/17/22 17:05 03/17/22 17:15 Temperature Pulse Rate 61 61 57 L Pulse Rate [Apical] Respiratory Rate 17 22 22 Blood Pressure Blood Pressure [Left Arm] O2 Sat by Pulse Oximetry 97 97 96 Oxygen Delivery Method 03/17/22 17:30 03/17/22 17:30 03/17/22 17:45 Temperature Pulse Rate 57 L 57 L Pulse Rate [Apical] Respiratory Rate 16 17 Blood Pressure 136/74 Blood Pressure [Left Arm] O2 Sat by Pulse Oximetry 96 97 Oxygen Delivery Method 03/17/22 18:00 03/17/22 18:00 03/17/22 18:30 Temperature Pulse Rate 59 L Pulse Rate [Apical] Respiratory Rate 21 16 Blood Pressure 137/73 Blood Pressure [Left Arm] O2 Sat by Pulse Oximetry 97 Oxygen Delivery Method 03/17/22 19:00 03/17/22 19:00 03/17/22 20:00 Temperature 97.9 F Pulse Rate 60 58 L Pulse Rate [Apical] Respiratory Rate 18 11 L Blood Pressure 135/82 122/66 Blood Pressure [Left Arm] O2 Sat by Pulse Oximetry 96 96 Oxygen Delivery Method Room Air 03/17/22 21:20 03/17/22 21:00 03/17/22 22:00 Temperature Pulse Rate 55 L 53 L Pulse Rate [Apical] Respiratory Rate 14 14 Blood Pressure 109/64 109/61 Blood Pressure [Left Arm] O2 Sat by Pulse Oximetry 95 95 Oxygen Delivery Method Room Air Room Air Room Air 03/17/22 23:00 03/18/22 00:00 03/18/22 01:00 Temperature 97.7 F Pulse Rate 50 L 52 L 52 L Pulse Rate [Apical] Respiratory Rate 18 13 14 Blood Pressure 120/73 117/65 126/64 Blood Pressure [Left Arm] O2 Sat by Pulse Oximetry 97 96 97 Oxygen Delivery Method Room Air Room Air Room Air 03/18/22 02:00 03/18/22 03:00 03/18/22 04:00 Temperature 97.7 F Pulse Rate 51 L 55 L 52 L Pulse Rate [Apical] Respiratory Rate 13 14 15 Blood Pressure 107/62 121/63 108/65 Blood Pressure [Left Arm] O2 Sat by Pulse Oximetry 96 96 97 Oxygen Delivery Method Room Air Room Air Room Air 03/18/22 05:00 03/18/22 06:00 03/18/22 07:00 Temperature 97.7 F Pulse Rate 54 L 57 L Pulse Rate [Apical] Respiratory Rate 14 13 Blood Pressure 130/73 134/76 Blood Pressure [Left Arm] O2 Sat by Pulse Oximetry 98 97 Oxygen Delivery Method Room Air Room Air Room Air 03/17/22 23:00 03/17/22 23:00 03/17/22 23:15 Temperature Pulse Rate 50 L 55 L Pulse Rate [Apical] Respiratory Rate 18 21 Blood Pressure 120/73 Blood Pressure [Left Arm] O2 Sat by Pulse Oximetry 97 98 Oxygen Delivery Method 03/17/22 23:30 03/17/22 23:30 03/17/22 23:45 Temperature Pulse Rate 51 L 50 L Pulse Rate [Apical] Respiratory Rate 17 14 Blood Pressure 121/70 Blood Pressure [Left Arm] O2 Sat by Pulse Oximetry 97 96 Oxygen Delivery Method 03/18/22 00:00 03/18/22 00:00 03/18/22 00:15 Temperature Pulse Rate 52 L 52 L Pulse Rate [Apical] Respiratory Rate 13 14 Blood Pressure 117/65 Blood Pressure [Left Arm] O2 Sat by Pulse Oximetry 96 96 Oxygen Delivery Method 03/18/22 00:30 03/18/22 00:30 03/18/22 00:45 Temperature Pulse Rate 51 L 53 L Pulse Rate [Apical] Respiratory Rate 13 14 Blood Pressure 108/61 Blood Pressure [Left Arm] O2 Sat by Pulse Oximetry 96 96 Oxygen Delivery Method 03/18/22 01:00 03/18/22 01:00 03/18/22 01:15 Temperature Pulse Rate 54 L 57 L Pulse Rate [Apical] Respiratory Rate 13 13 Blood Pressure 126/64 Blood Pressure [Left Arm] O2 Sat by Pulse Oximetry 95 98 Oxygen Delivery Method 03/18/22 01:30 03/18/22 01:30 03/18/22 01:45 Temperature Pulse Rate 53 L 52 L Pulse Rate [Apical] Respiratory Rate 13 13 Blood Pressure 113/60 Blood Pressure [Left Arm] O2 Sat by Pulse Oximetry 96 96 Oxygen Delivery Method 03/18/22 02:00 03/18/22 02:00 03/18/22 02:15 Temperature Pulse Rate 51 L 50 L Pulse Rate [Apical] Respiratory Rate 13 13 Blood Pressure 107/62 Blood Pressure [Left Arm] O2 Sat by Pulse Oximetry 96 96 Oxygen Delivery Method 03/18/22 02:30 03/18/22 02:30 03/18/22 02:45 Temperature Pulse Rate 49 L 51 L Pulse Rate [Apical] Respiratory Rate 14 13 Blood Pressure 115/64 Blood Pressure [Left Arm] O2 Sat by Pulse Oximetry 96 96 Oxygen Delivery Method 03/18/22 03:00 03/18/22 03:00 03/18/22 03:15 Temperature Pulse Rate 55 L 54 L Pulse Rate [Apical] Respiratory Rate 14 14 Blood Pressure 121/63 Blood Pressure [Left Arm] O2 Sat by Pulse Oximetry 96 97 Oxygen Delivery Method 03/18/22 03:30 03/18/22 03:30 03/18/22 03:45 Temperature Pulse Rate 51 L 51 L Pulse Rate [Apical] Respiratory Rate 12 14 Blood Pressure 111/64 Blood Pressure [Left Arm] O2 Sat by Pulse Oximetry 96 96 Oxygen Delivery Method 03/18/22 04:00 03/18/22 04:05 03/18/22 04:05 Temperature Pulse Rate 50 L 52 L Pulse Rate [Apical] Respiratory Rate 14 15 Blood Pressure 108/65 Blood Pressure [Left Arm] O2 Sat by Pulse Oximetry 96 97 Oxygen Delivery Method 03/18/22 04:15 03/18/22 04:30 03/18/22 04:45 Temperature Pulse Rate 51 L 57 L 55 L Pulse Rate [Apical] Respiratory Rate 16 14 16 Blood Pressure Blood Pressure [Left Arm] O2 Sat by Pulse Oximetry 98 99 99 Oxygen Delivery Method 03/18/22 05:00 03/18/22 05:00 03/18/22 05:15 Temperature Pulse Rate 52 L 52 L Pulse Rate [Apical] Respiratory Rate 17 21 Blood Pressure 130/73 Blood Pressure [Left Arm] O2 Sat by Pulse Oximetry 99 98 Oxygen Delivery Method 03/18/22 05:30 03/18/22 05:45 03/18/22 06:00 Temperature Pulse Rate 55 L 53 L Pulse Rate [Apical] Respiratory Rate 17 11 L Blood Pressure 134/76 Blood Pressure [Left Arm] O2 Sat by Pulse Oximetry 98 98 Oxygen Delivery Method 03/18/22 06:00 03/18/22 06:15 03/18/22 06:30 Temperature Pulse Rate 60 54 L 69 Pulse Rate [Apical] Respiratory Rate 17 13 26 H Blood Pressure Blood Pressure [Left Arm] O2 Sat by Pulse Oximetry 98 99 96 Oxygen Delivery Method 03/18/22 06:45 03/18/22 07:00 03/18/22 07:00 Temperature 97.9 F Pulse Rate 57 L 62 Pulse Rate [Apical] Respiratory Rate 20 25 H Blood Pressure 120/73 Blood Pressure [Left Arm] O2 Sat by Pulse Oximetry 98 96 Oxygen Delivery Method 03/18/22 07:15 03/18/22 07:30 03/18/22 07:45 Temperature Pulse Rate 59 L 62 58 L Pulse Rate [Apical] Respiratory Rate 19 19 19 Blood Pressure Blood Pressure [Left Arm] O2 Sat by Pulse Oximetry 97 95 95 Oxygen Delivery Method 03/18/22 08:00 03/18/22 08:00 03/18/22 08:15 Temperature Pulse Rate 64 58 L Pulse Rate [Apical] Respiratory Rate 23 20 Blood Pressure 133/74 Blood Pressure [Left Arm] O2 Sat by Pulse Oximetry 95 97 Oxygen Delivery Method 03/18/22 08:30 03/18/22 08:45 03/18/22 10:07 Temperature Pulse Rate 55 L 56 L 54 L Pulse Rate [Apical] Respiratory Rate 18 18 Blood Pressure Blood Pressure [Left Arm] O2 Sat by Pulse Oximetry 97 96 96 Oxygen Delivery Method 03/18/22 10:12 03/18/22 10:12 03/18/22 10:15 Temperature Pulse Rate 53 L 59 L Pulse Rate [Apical] Respiratory Rate 11 L 0 L Blood Pressure 136/72 Blood Pressure [Left Arm] O2 Sat by Pulse Oximetry 99 98 Oxygen Delivery Method 03/18/22 10:30 03/18/22 10:42 03/18/22 10:42 Temperature Pulse Rate 58 L 61 Pulse Rate [Apical] Respiratory Rate 26 H 14 Blood Pressure 160/95 Blood Pressure [Left Arm] O2 Sat by Pulse Oximetry 97 100 Oxygen Delivery Method 03/18/22 10:45 03/18/22 11:00 03/18/22 11:00 Temperature 97.9 F Pulse Rate 60 59 L Pulse Rate [Apical] Respiratory Rate 19 21 Blood Pressure 139/83 Blood Pressure [Left Arm] O2 Sat by Pulse Oximetry 92 L 99 Oxygen Delivery Method 03/18/22 11:15 03/18/22 11:30 07/11/22 11:45 Temperature Pulse Rate 54 L 57 L 59 L Pulse Rate [Apical] Respiratory Rate 19 18 20 Blood Pressure Blood Pressure [Left Arm] O2 Sat by Pulse Oximetry 98 98 100 Oxygen Delivery Method 03/18/22 12:00 03/18/22 12:02 03/18/22 12:02 Temperature Pulse Rate 57 L 56 L Pulse Rate [Apical] Respiratory Rate 30 H 22 Blood Pressure 132/68 Blood Pressure [Left Arm] O2 Sat by Pulse Oximetry 97 98 Oxygen Delivery Method 03/18/22 12:15 03/18/22 12:30 03/18/22 12:45 Temperature Pulse Rate 59 L 56 L 67 Pulse Rate [Apical] Respiratory Rate 35 H 16 Blood Pressure Blood Pressure [Left Arm] O2 Sat by Pulse Oximetry 98 99 96 Oxygen Delivery Method 03/18/22 13:00 03/18/22 08:55 03/18/22 13:15 Temperature Pulse Rate 59 L 61 Pulse Rate [Apical] Respiratory Rate 20 19 Blood Pressure Blood Pressure [Left Arm] O2 Sat by Pulse Oximetry 98 98 Oxygen Delivery Method Room Air 03/18/22 13:30 03/18/22 13:45 03/18/22 14:00 Temperature Pulse Rate 60 60 70 Pulse Rate [Apical] Respiratory Rate 14 16 23 Blood Pressure Blood Pressure [Left Arm] O2 Sat by Pulse Oximetry 98 98 97 Oxygen Delivery Method 03/18/22 14:15 03/18/22 14:30 03/18/22 14:45 Temperature Pulse Rate 61 62 66 Pulse Rate [Apical] Respiratory Rate 18 16 19 Blood Pressure Blood Pressure [Left Arm] O2 Sat by Pulse Oximetry 99 100 98 Oxygen Delivery Method 03/18/22 15:00 03/18/22 15:15 03/18/22 15:30 Temperature 97.7 F Pulse Rate 67 62 64 Pulse Rate [Apical] Respiratory Rate 20 20 21 Blood Pressure Blood Pressure [Left Arm] O2 Sat by Pulse Oximetry 98 98 100 Oxygen Delivery Method 03/18/22 15:45 03/18/22 16:00 03/18/22 16:15 Temperature Pulse Rate 62 60 67 Pulse Rate [Apical] Respiratory Rate 18 24 23 Blood Pressure Blood Pressure [Left Arm] O2 Sat by Pulse Oximetry 99 100 95 Oxygen Delivery Method 03/18/22 16:30 03/18/22 16:45 03/18/22 17:00 Temperature Pulse Rate 65 62 61 Pulse Rate [Apical] Respiratory Rate 27 H 22 23 Blood Pressure Blood Pressure [Left Arm] O2 Sat by Pulse Oximetry 98 100 99 Oxygen Delivery Method 03/18/22 17:08 03/18/22 17:08 03/18/22 17:15 Temperature 98.6 F Pulse Rate 57 L 63 Pulse Rate [Apical] Respiratory Rate 19 27 H Blood Pressure 117/68 Blood Pressure [Left Arm] O2 Sat by Pulse Oximetry 99 94 L Oxygen Delivery Method 03/18/22 17:30 03/18/22 17:32 03/18/22 17:32 Temperature Pulse Rate 67 58 L Pulse Rate [Apical] Respiratory Rate 29 H 20 Blood Pressure 123/66 Blood Pressure [Left Arm] O2 Sat by Pulse Oximetry 87 L 97 Oxygen Delivery Method 03/18/22 17:45 03/18/22 18:00 03/18/22 18:00 Temperature Pulse Rate 62 56 L Pulse Rate [Apical] Respiratory Rate 22 21 Blood Pressure 118/66 Blood Pressure [Left Arm] O2 Sat by Pulse Oximetry 98 98 Oxygen Delivery Method 03/18/22 19:00 03/18/22 19:00 03/18/22 20:00 Temperature 97.7 F Pulse Rate 65 60 Pulse Rate [Apical] Respiratory Rate 23 18 Blood Pressure 127/74 117/63 Blood Pressure [Left Arm] O2 Sat by Pulse Oximetry 98 98 Oxygen Delivery Method Room Air 03/18/22 21:00 03/18/22 20:07 03/18/22 22:00 Temperature Pulse Rate 56 L 56 L Pulse Rate [Apical] Respiratory Rate 16 15 Blood Pressure 115/63 120/62 Blood Pressure [Left Arm] O2 Sat by Pulse Oximetry 98 99 Oxygen Delivery Method Room Air 03/18/22 23:00 03/19/22 00:00 03/19/22 01:00 Temperature 98.4 F Pulse Rate 56 L 51 L 58 L Pulse Rate [Apical] Respiratory Rate 15 15 16 Blood Pressure 113/62 127/69 120/66 Blood Pressure [Left Arm] O2 Sat by Pulse Oximetry 98 98 98 Oxygen Delivery Method 03/19/22 02:00 03/19/22 03:00 03/19/22 04:00 Temperature 97.5 F L Pulse Rate 57 L 58 L 71 Pulse Rate [Apical] Respiratory Rate 15 14 22 Blood Pressure 122/63 136/75 119/70 Blood Pressure [Left Arm] O2 Sat by Pulse Oximetry 97 99 98 Oxygen Delivery Method 03/19/22 05:00 03/19/22 06:00 03/19/22 07:00 Temperature Pulse Rate 57 L 53 L Pulse Rate [Apical] Respiratory Rate 13 15 Blood Pressure 119/79 119/71 Blood Pressure [Left Arm] O2 Sat by Pulse Oximetry 100 97 Oxygen Delivery Method Room Air 03/18/22 22:00 03/18/22 22:00 03/18/22 22:15 Temperature Pulse Rate 56 L 54 L Pulse Rate [Apical] Respiratory Rate 15 13 Blood Pressure 120/62 Blood Pressure [Left Arm] O2 Sat by Pulse Oximetry 99 98 Oxygen Delivery Method 03/18/22 22:30 03/18/22 22:45 03/18/22 23:00 Temperature Pulse Rate 53 L 52 L Pulse Rate [Apical] Respiratory Rate 15 15 Blood Pressure 113/62 Blood Pressure [Left Arm] O2 Sat by Pulse Oximetry 98 98 Oxygen Delivery Method 03/18/22 23:00 03/18/22 23:15 03/18/22 23:30 Temperature Pulse Rate 56 L 56 L 67 Pulse Rate [Apical] Respiratory Rate 15 16 19 Blood Pressure Blood Pressure [Left Arm] O2 Sat by Pulse Oximetry 98 99 100 Oxygen Delivery Method 03/18/22 23:45 03/19/22 00:00 03/19/22 00:00 Temperature Pulse Rate 52 L 51 L Pulse Rate [Apical] Respiratory Rate 14 15 Blood Pressure 127/69 Blood Pressure [Left Arm] O2 Sat by Pulse Oximetry 98 98 Oxygen Delivery Method 03/19/22 00:15 03/19/22 00:30 03/19/22 00:45 Temperature Pulse Rate 54 L 56 L 57 L Pulse Rate [Apical] Respiratory Rate 15 16 15 Blood Pressure Blood Pressure [Left Arm] O2 Sat by Pulse Oximetry 98 98 98 Oxygen Delivery Method 03/19/22 01:00 03/19/22 01:00 03/19/22 01:15 Temperature Pulse Rate 56 L 58 L Pulse Rate [Apical] Respiratory Rate 16 18 Blood Pressure 120/66 Blood Pressure [Left Arm] O2 Sat by Pulse Oximetry 98 98 Oxygen Delivery Method 03/19/22 01:30 03/19/22 01:45 03/19/22 02:00 Temperature Pulse Rate 54 L 54 L Pulse Rate [Apical] Respiratory Rate 15 14 Blood Pressure 122/63 Blood Pressure [Left Arm] O2 Sat by Pulse Oximetry 100 97 Oxygen Delivery Method 03/19/22 02:00 03/19/22 02:15 03/19/22 02:30 Temperature Pulse Rate 56 L 54 L 54 L Pulse Rate [Apical] Respiratory Rate 15 16 16 Blood Pressure Blood Pressure [Left Arm] O2 Sat by Pulse Oximetry 97 97 98 Oxygen Delivery Method 03/19/22 02:45 03/19/22 03:00 03/19/22 03:00 Temperature Pulse Rate 54 L 58 L Pulse Rate [Apical] Respiratory Rate 15 14 Blood Pressure 136/75 Blood Pressure [Left Arm] O2 Sat by Pulse Oximetry 98 99 Oxygen Delivery Method 03/19/22 03:15 03/19/22 03:30 03/19/22 03:45 Temperature Pulse Rate 52 L 54 L 52 L Pulse Rate [Apical] Respiratory Rate 16 16 15 Blood Pressure Blood Pressure [Left Arm] O2 Sat by Pulse Oximetry 99 98 97 Oxygen Delivery Method 03/19/22 04:00 03/19/22 04:00 03/19/22 04:15 Temperature Pulse Rate 52 L 53 L Pulse Rate [Apical] Respiratory Rate 15 15 Blood Pressure 119/70 Blood Pressure [Left Arm] O2 Sat by Pulse Oximetry 97 97 Oxygen Delivery Method 03/19/22 04:30 03/19/22 04:45 03/19/22 05:00 Temperature Pulse Rate 59 L 56 L Pulse Rate [Apical] Respiratory Rate 18 17 Blood Pressure 119/79 Blood Pressure [Left Arm] O2 Sat by Pulse Oximetry 98 98 Oxygen Delivery Method 03/19/22 05:00 03/19/22 05:15 03/19/22 05:30 Temperature Pulse Rate 56 L 56 L 57 L Pulse Rate [Apical] Respiratory Rate 14 15 16 Blood Pressure Blood Pressure [Left Arm] O2 Sat by Pulse Oximetry 98 97 97 Oxygen Delivery Method 03/19/22 05:45 03/19/22 06:00 03/19/22 06:00 Temperature Pulse Rate 51 L 52 L Pulse Rate [Apical] Respiratory Rate 16 14 Blood Pressure 119/71 Blood Pressure [Left Arm] O2 Sat by Pulse Oximetry 96 96 Oxygen Delivery Method 03/19/22 06:15 03/19/22 06:30 03/19/22 06:45 Temperature Pulse Rate 53 L 51 L 57 L Pulse Rate [Apical] Respiratory Rate 13 15 16 Blood Pressure Blood Pressure [Left Arm] O2 Sat by Pulse Oximetry 97 98 99 Oxygen Delivery Method 03/19/22 07:00 03/19/22 07:00 03/19/22 07:15 Temperature Pulse Rate 58 L 59 L Pulse Rate [Apical] Respiratory Rate 17 30 H Blood Pressure 138/84 Blood Pressure [Left Arm] O2 Sat by Pulse Oximetry 98 87 L Oxygen Delivery Method 03/19/22 07:30 03/19/22 07:45 03/19/22 08:00 Temperature Pulse Rate 59 L 66 Pulse Rate [Apical] Respiratory Rate 29 H 34 H Blood Pressure 124/73 Blood Pressure [Left Arm] O2 Sat by Pulse Oximetry 86 L Oxygen Delivery Method 03/19/22 08:00 03/19/22 08:15 03/19/22 08:05 Temperature 97.7 F Pulse Rate 59 L 66 Pulse Rate [Apical] Respiratory Rate 18 36 H Blood Pressure Blood Pressure [Left Arm] O2 Sat by Pulse Oximetry 100 Oxygen Delivery Method Room Air 03/19/22 08:31 03/19/22 08:45 03/19/22 09:00 Temperature Pulse Rate 67 61 56 L Pulse Rate [Apical] Respiratory Rate 20 19 17 Blood Pressure Blood Pressure [Left Arm] O2 Sat by Pulse Oximetry 100 99 Oxygen Delivery Method 03/19/22 09:02 03/19/22 09:02 03/19/22 09:15 Temperature Pulse Rate 61 59 L Pulse Rate [Apical] Respiratory Rate 23 19 Blood Pressure 122/76 Blood Pressure [Left Arm] O2 Sat by Pulse Oximetry 98 96 Oxygen Delivery Method 03/19/22 09:30 03/19/22 09:45 03/19/22 10:00 Temperature Pulse Rate 58 L 60 Pulse Rate [Apical] Respiratory Rate 27 H 27 H Blood Pressure 123/78 Blood Pressure [Left Arm] O2 Sat by Pulse Oximetry 99 98 Oxygen Delivery Method 03/19/22 10:00 03/19/22 10:15 03/19/22 10:30 Temperature Pulse Rate 59 L 56 L 57 L Pulse Rate [Apical] Respiratory Rate 23 20 25 H Blood Pressure Blood Pressure [Left Arm] O2 Sat by Pulse Oximetry 99 99 100 Oxygen Delivery Method 03/19/22 10:45 03/19/22 11:00 03/19/22 11:00 Temperature Pulse Rate 56 L 51 L Pulse Rate [Apical] Respiratory Rate 25 H 15 Blood Pressure 127/77 Blood Pressure [Left Arm] O2 Sat by Pulse Oximetry 99 98 Oxygen Delivery Method 03/19/22 11:15 03/19/22 11:30 03/19/22 11:45 Temperature Pulse Rate 52 L 51 L 60 Pulse Rate [Apical] Respiratory Rate 14 19 25 H Blood Pressure Blood Pressure [Left Arm] O2 Sat by Pulse Oximetry 99 98 97 Oxygen Delivery Method 03/19/22 12:00 03/19/22 12:01 03/19/22 12:01 Temperature Pulse Rate 59 L 57 L Pulse Rate [Apical] Respiratory Rate 27 H 29 H Blood Pressure 143/79 Blood Pressure [Left Arm] O2 Sat by Pulse Oximetry 82 L Oxygen Delivery Method 03/19/22 12:15 03/19/22 12:30 03/19/22 12:45 Temperature Pulse Rate 54 L 55 L 62 Pulse Rate [Apical] Respiratory Rate 21 20 29 H Blood Pressure Blood Pressure [Left Arm] O2 Sat by Pulse Oximetry 95 100 95 Oxygen Delivery Method 03/19/22 13:00 03/19/22 13:00 03/19/22 13:15 Temperature Pulse Rate 57 L 62 Pulse Rate [Apical] Respiratory Rate 20 24 Blood Pressure 124/92 Blood Pressure [Left Arm] O2 Sat by Pulse Oximetry 96 93 L Oxygen Delivery Method 03/19/22 13:30 03/19/22 13:45 03/19/22 14:00 Temperature Pulse Rate 66 61 61 Pulse Rate [Apical] Respiratory Rate 49 H 27 H 36 H Blood Pressure Blood Pressure [Left Arm] O2 Sat by Pulse Oximetry 98 100 96 Oxygen Delivery Method 03/19/22 14:01 03/19/22 14:01 03/19/22 14:15 Temperature Pulse Rate 64 59 L Pulse Rate [Apical] Respiratory Rate 26 H 19 Blood Pressure 115/79 Blood Pressure [Left Arm] O2 Sat by Pulse Oximetry 96 99 Oxygen Delivery Method Labs: Laboratory Last Values WBC 9.9 X10^3/uL (3.6-10.0) 03/19/22 04:45 RBC 4.71 X10^6/uL (4.7-6.0) 03/19/22 04:45 Hgb 14.1 g/dL (13.5-18.0) 03/19/22 04:45 Hct 41.0 % (42.0-54.0) L 03/19/22 04:45 MCV 87.0 fL (80.0-100.0) 03/19/22 04:45 MCH 29.9 pg (27.0-34.0) 03/19/22 04:45 MCHC 34.3 g/dL (33.0-35.0) 03/19/22 04:45 RDW 13.7 % (11.6-16.5) 03/19/22 04:45 Plt Count 183 X10^3/uL (150.0-450.0) 03/19/22 04:45 Plt Count Comment Adequate (ADEQUATE) 03/18/22 05:10 MPV 9.0 fL (7.4-11.0) 03/19/22 04:45 Neut % (Auto) 69.8 % (42.0-75.0) 03/19/22 04:45 Lymph % (Auto) 22.2 % (21.0-51.0) 03/19/22 04:45 [place] % (Auto) 6.7 % (0.0-13.0) 03/19/22 04:45 Eos % (Auto) 0.9 % (0.9-2.9) 03/19/22 04:45 Baso % (Auto) 0.4 % (0.2-1.0) 03/19/22 04:45 Neut # (Auto) 6.9 x10^3/uL (2.2-4.8) H 03/19/22 04:45 Lymph # (Auto) 2.2 X10^3/uL (1.3-2.9) 03/19/22 04:45 [place] # (Auto) 0.7 x10^3/uL (0.3-0.8) 03/19/22 04:45 Eos # (Auto) 0.1 x10^3/uL (0.0-0.2) 03/19/22 04:45 Baso # (Auto) 0.0 X10^3/uL (0.0-0.1) 03/19/22 04:45 Absolute Nucleated RBC 0.0 /100WBC 03/19/22 04:45 Total Counted 100 03/18/22 05:10 Neutrophils % (Manual) 90 % (39-76) H 03/18/22 05:10 Band Neutrophils % 1 % (0-10) 03/18/22 05:10 Lymphocytes % (Manual) 6 % (13-43) L 03/18/22 05:10 Monocytes % (Manual) 3 % (4-9) L 03/18/22 05:10 Plt Morphology Comment Normal (NORMAL) 03/18/22 05:10 RBC Morphology Normal (NORMAL) 03/18/22 05:10 PT 14.3 SECONDS (11.8-14.3) 03/17/22 14:05 INR Target Range - 03/17/22 14:05 INR 1.15 (0.8-1.3) 03/17/22 14:05 APTT 32.6 SECONDS (22.9-36.5) 03/17/22 14:05 PTT Comment - 03/17/22 14:05 Fibrinogen 368 mg/dL (239-489) 03/17/22 14:05 Sodium 141 mmol/L (136-145) 03/19/22 04:45 Corrected Sodium TNP 03/19/22 04:45 Potassium 4.0 mmol/L (3.5-5.1) 03/19/22 04:45 Chloride 109 mmol/L (98-107) H 03/19/22 04:45 Carbon Dioxide 28.4 mmol/L (21-32) 03/19/22 04:45 BUN 13 mg/dL (7-18) 03/19/22 04:45 Creatinine 0.86 mg/dL (0.70-1.30) 03/19/22 04:45 Est GFR (MDRD) Af Amer > 60 (>60) 03/19/22 04:45 Est GFR (MDRD) Non-Af > 60 (>60) 03/19/22 04:45 Glucose 98 mg/dL (65-99) 03/19/22 04:45 POC Glucose (mg/dL) 123 mg/dL (65-99) H 03/18/22 05:34 Hemoglobin A1c 5.6 % 03/18/22 05:10 Calcium 7.8 mg/dL (8.5-10.1) L 03/19/22 04:45 Corrected Calcium 8.8 mg/dL (8.5-10.1) 03/18/22 05:10 Total Bilirubin 0.40 mg/dL (0.2-1.0) 03/18/22 05:10 AST 13 Units/L (15-37) L 03/18/22 05:10 ALT 23 Units/L (12-78) 03/18/22 05:10 Alkaline Phosphatase 65 Units/L (46-116) 03/18/22 05:10 Creatine Kinase 145 Units/L (39-308) 03/17/22 17:29 CK-MB (CK-2) 1.6 ng/mL (0-4.0) 03/17/22 17:29 CK/CKMB % Calc 1.1 % (<4) 03/17/22 17:29 Troponin I High Sens 8.8 ng/L (4.0-60.0) 03/17/22 17:29 Total Protein 6.0 g/dL (6.4-8.2) L 03/18/22 05:10 Albumin 3.2 g/dL (3.4-5.0) L 03/18/22 05:10 Globulin 2.8 g/dL (2.5-4.5) 03/18/22 05:10 Albumin/Globulin Ratio 1.1 Ratio (1.1-2.1) 03/18/22 05:10 Triglycerides 87 mg/dL (0-150) 03/17/22 14:05 Cholesterol 161 mg/dL (0-200) 03/17/22 14:05 LDL Cholesterol, Calc 94 mg/dL (0-100) 03/17/22 14:05 HDL Cholesterol 50 mg/dL (40-60) 03/17/22 14:05 Cholesterol/HDL Ratio 3.2 (0.0-5.0) 03/17/22 14:05 Specimen Type Clean catch urine 03/17/22 19:50 Urine Color Pale yellow (YELLOW) 03/17/22 19:50 Urine Appearance Clear (CLEAR) 03/17/22 19:50 Urine pH 6.5 (5.0 - 8.0) 03/17/22 19:50 Ur Specific [place] 1.010 (1.000-1.030) 03/17/22 19:50 Urine Protein Negative (NEGATIVE) 03/17/22 19:50 Urine Glucose (UA) Negative (NEGATIVE) 03/17/22 19:50 Urine Ketones Negative (NEGATIVE) 03/17/22 19:50 Urine Blood 1+ (NEGATIVE) 03/17/22 19:50 Urine Nitrite Negative (NEGATIVE) 03/17/22 19:50 Urine Bilirubin Negative (NEGATIVE) 03/17/22 19:50 Urine Urobilinogen Normal (NORMAL) 03/17/22 19:50 Ur Leukocyte Esterase Negative (NEGATIVE) 03/17/22 19:50 Urine RBC 0-2 /HPF (0-3) 03/17/22 19:50 Urine WBC None seen /HPF (0-5) 03/17/22 19:50 Ur Squamous Epith Cells Negative /HPF (NEGATIVE) 03/17/22 19:50 Urine Bacteria Negative /HPF (NEGATIVE) 03/17/22 19:50 Ur Culture Indicated? No/not indicated 03/17/22 19:50 SARS-CoV-2 (PCR) Negative (NEGATIVE) 03/17/22 16:26 Blood Type O POSITIVE 03/17/22 14:22 Antibody Screen Negative 03/17/22 14:22 Reason For Visit: ISCHEMIC CVA, A.FIB Discharge Diagnosis All Active Problems (Updated 03/18/22 @ 11:14 by Arianna John) History of CVA (cerebrovascular accident) (Acute) Left hemiparesis (Acute) HTN (hypertension) (Acute) Foreign body in eye (Acute) Muscle spasm (Acute) Chest pain (Acute) Pericarditis (Acute) Acute CVA (cerebrovascular accident) (Acute) Atrial fibrillation (Acute) Plan of Treatment: Continue with present treatment and follow up plan. Pt is to keep follow up appointment as instructed and take medications as ordered. Discharge Medications Discharge Medications: No Known Drug Allergies Allergy (Verified 03/17/22 14:11) CONTINUE taking the following medications apixaban 5 mg tablet (Eliquis) 1 tab BID 03/17/22 [History] losartan 50 mg tablet 1 tab PO QDAY 03/17/22 [History] losartan 50 mg tablet 1 tab PO QDAY 03/17/22 [History] Discharge Plan Discharge Plan Patient Disposition: 01 HOME, SELF-CARE Condition: Stable Health Concerns: Post Hospitalization: new medications and changes needed to prevent readmission or further decline. Pt educated and given instructions on all concerns. Care Plan Goals: Problem: Activity Intolerance Goal: Increased tolerance to activity Instructions: Follow provided instructions. Follow up with primary physician as directed. Contact primary care physician or report to the closest Emergency Room if condition worsens. Plan of Treatment: Continue with present treatment and follow up plan. Pt is to keep follow up appointment as instructed and take medications as ordered. Prescription drug monitoring program results: PDMP reviewed and no concerns identified Prescriptions: Continued losartan 50 mg tablet 1 tab PO QDAY Eliquis 5 mg tablet 1 tab BID losartan 50 mg tablet 1 tab PO QDAY Orders to Discharge Patient Discharge Orders: Discharge (Routine); Ordered 03/19/22 Ordered By: Arianna John Follow ups/Referrals Follow ups/Referrals: SHARON Hutchins [REFERRING] - (Call office tomorrow to see if an earlier appointment can be made. ) Jus Riggins [REFERRING] - 03/28/22 10:30 am Instructions Instructions: Stroke Prevention, Jyzn-pw-[id number], Warning Signs of a Stroke, Hypertension, Adult, Rrpw-kp-Hhlr, Atrial Fibrillation, Csve-bo-Eipw, Hemiparesis Stand Alone Forms: Excuse From Work or School, Precautions for COVID19, [facility], Patient Portal, Social Distancing Patient Education Addl Reference Links: Stroke Prevention [email or web address]?[email or web address]=[email or web address]&sea rchtype=c&maxresults=10&language=en&patientPerson.administrativeGenderCode.c=M &patientPerson.administrativeGenderCode.dn=Male&age.v.v=51&age.v.u=a&performer=P ROV&informationRecipient=PAT&performer.languageCode.c=en&mainSearchCriteria.v.dn =Stroke%2BPrevention&f=[id number]
== END 2022-03-19 14:50 | disposition home or self-care (01) ==
LOC: ICU 13:52 → ER 13:52 → ICU 16:43
PROVIDERS: ADMIT Internal Medicine; ATTEND Internal Medicine